=== PATIENT | male | born 1995 | race Caucasian/White ===

== ENCOUNTER 2017-08-31 04:47 | Emergency (ER) | payer OTHER ==
[2017-08-31 05:15] VITALS: RESP 16; TEMP 98.1
[2017-08-31] MEDS ORDERED: DEXAMETHASONE 10 MG/ML VIAL PO ONE (05:32)
--- NOTE | 2017-08-31 05:34 | EDPHY ---
H & P Stated Complaint: sore throat for 3 days Time Seen by Provider: 08/31/17 04:54 HPI/ROS: HPI The patient presents with sore throat for the last 4 days which has gotten progressively worse and is more painful with swallowing. He believes he feels swollen lymph node in his left neck. He has not had a fever, he has not had a cough, has not had rhinorrhea. He does not have any fatigue, abdominal pain, nausea or vomiting. He denies any sick contacts. He is concerned he may have strep throat. REVIEW OF SYSTEMS Constitutional: No fever, no chills. Eyes: No discharge. ENT: See HPI Cardiovascular: No chest pain, no palpitations. Respiratory: No cough, no shortness of breath. Gastrointestinal: No abdominal pain, no vomiting. Genitourinary: No hematuria. Musculoskeletal: No back pain. Skin: No rashes. Neurological: No headache. PMHx: Sleep disorder, otherwise healthy Soc Hx: Lives at home with his dad PHYSICAL General Appearance: Alert, no distress Eyes: Pupils equal and round no pallor or injection ENT, Mouth: Mucous membranes moist, posterior pharynx is erythematous without exudates, left-sided anterior cervical lymphadenopathy Respiratory: There are no retractions, lungs are clear to auscultation Cardiovascular: Regular rate and rhythm Neurological: A&O, moves all extremities Skin: Warm and dry, no rashes Musculoskeletal: Neck is supple non tender Extremities: symmetrical, full range of motion Psychiatric: Patient is oriented X 3, there is no agitation Source: Patient Exam Limitations: No limitations - Personal History Current Tetanus/Diphtheria Vaccine: Yes Current Tetanus Diphtheria and Acellular Pertussis (TDAP): Yes - Medical/Surgical History Hx Asthma: No Hx Chronic Respiratory Disease: No Hx Diabetes: No Hx Cardiac Disease: No Hx Renal Disease: No Hx Cirrhosis: No Hx Alcoholism: No Hx HIV/AIDS: No Hx Splenectomy or Spleen Trauma: No Other PMH: idiopathic hypersomnia - Social History Smoking Status: Never smoked Constitutional: Initial Vital Signs Temperature (C) 36.7 C 08/31/17 04:49 Heart Rate 121 H 08/31/17 04:49 Respiratory Rate 16 08/31/17 04:49 Blood Pressure 131/74 H 08/31/17 04:49 O2 Sat (%) 96 08/31/17 04:49 O2 Delivery Mode Room Air Allergies/Adverse Reactions: No Known Allergies Allergy (Verified 08/31/17 04:51) Home Medications: Medication Instructions Recorded Wellbutrin 100mg (*) 08/31/17 Medical Decision Making Differential Diagnosis: 21-year-old male presents with 4 days of sore throat. On exam he has erythema without exudates of his posterior pharynx. Differential diagnosis includes viral pharyngitis, strep pharyngitis, less likely mononucleosis. In the emergency department, rapid strep was performed and negative. Plan for dose of Decadron here, I have advised patient to continue ibuprofen and Tylenol. He will be discharged though I have instructed him to follow up with his primary care doctor in 2 days unless he is better.. - Data Points Laboratory Results: 08/31/17 08/31/17 Unknown 04:53 Group A Strep Screen NEGATIVE (NEGATIVE) Group A Strep DNA Pending Departure - Departure Disposition: Home, Routine, Self-Care Clinical Impression: Acute pharyngitis Qualifiers: Pharyngitis/tonsillitis etiology: unspecified etiology Qualified Code(s): J02.9 - Acute pharyngitis, unspecified Condition: Good Instructions: Pharyngitis (ED) Additional Instructions: I recommend you take ibuprofen 400 mg and acetaminophen 650 mg every 6 hr as needed for pain. If your still having symptoms in 2 days I would like for you to follow up with your primary care doctor. If your worse in any way, you should return to the emergency department. Referrals: Martha Atkinson MD [Primary Care Provider] - As per Instructions
[2017-08-31 05:52] VITALS: BP 128/70; PULSE 110; O2SAT 97
== END 2017-08-31 05:52 | disposition home or self-care (01) ==
DX: J02.9 Acute pharyngitis, unspecified (principal)
CPT/HCPCS: J1100

== ENCOUNTER 2017-12-27 15:32 | Inpatient (IN) | payer OTHER ==
--- NOTE | 2017-12-27 15:52 | EDPHY ---
H & P Stated Complaint: SI Source: Patient Exam Limitations: No limitations - Personal History Current Tetanus/Diphtheria Vaccine: Unsure Current Tetanus Diphtheria and Acellular Pertussis (TDAP): Unsure - Medical/Surgical History Hx Asthma: No Hx Chronic Respiratory Disease: No Hx Diabetes: No Hx Cardiac Disease: No Hx Renal Disease: No Hx Cirrhosis: No Hx Alcoholism: No Hx HIV/AIDS: No Hx Splenectomy or Spleen Trauma: No Other PMH: idiopathic hypersomnia, bipolar 2, - Social History Smoking Status: Current every day smoker Time Seen by Provider: 12/27/17 15:51 HPI/ROS: CHIEF COMPLAINT: Suicidal ideation HISTORY OF PRESENT ILLNESS: The patient presents to the ED with 5 days of suicidal ideation. The patient has attention deficit hyperactivity disorder in some self cutting. He reports a plan to hang himself for driving vehicle high rate of speed into an immobile object. The patient reports he has been compliant with his lithium and Trilelx. The patient is under the care of a therapist and psychiatrist here [place]. The patient denies any drug or alcohol use. The patient denies acute medical complaints. The patient denies any headache, ingestion, nausea, vomiting or additional symptoms. REVIEW OF SYSTEMS: A comprehensive 10 point review of systems is otherwise negative aside from elements mentioned in the history of present illness. (Tadeo Queen) - Physical Exam Exam: General Appearance: Alert, no distress Eyes: Pupils equal and round no pallor or injection ENT, Mouth: Mucous membranes moist Respiratory: There are no retractions, lungs are clear to auscultation Cardiovascular: Regular rate and rhythm Gastrointestinal: Abdomen is soft and nontender, no masses, bowel sounds normal Neurological: A&O, normal motor function, normal sensory exam, normal cranial nerves Skin: Superficial skin cuts to left arm, nonsuturable Musculoskeletal: Neck is supple nontender Extremities: symmetrical, full range of motion Psychiatric: Flat affect, cooperative, non agitated, endorses suicidal thoughts with plan, can contract for safety currently (Tadeo Queen) Constitutional: Initial Vital Signs Temperature (C) 37 C 12/27/17 15:40 Heart Rate 85 12/27/17 15:40 Respiratory Rate 16 12/27/17 15:40 Blood Pressure 126/83 H 12/27/17 15:40 O2 Sat (%) 96 12/27/17 15:40 O2 Delivery Mode Room Air Allergies/Adverse Reactions: lamotrigine [From Lamictal] Allergy (Verified 12/27/17 15:39) Home Medications: Medication Instructions Recorded Ethan Carbonate 12/27/17 Trintellix 12/27/17 Medical Decision Making ED Course/Re-evaluation: The patient has been medically cleared for psychiatric evaluation. The patient's psychiatric disposition is pending at 10:00 p.m. and will be turned over to Dr. Loving at shift change. (Tadeo Queen) Differential Diagnosis: Differential diagnosis considered includes suicidal ideation, depression, bipolar mood disorder, psychosis (Tadeo Queen) Other Provider: 22:[address] Queen pending mental health evaluation. 23:15 patient has been evaluated and accepted at [address] [place] [address] Tate, I have completed the EMTALA. (Abisai Loving) - Data Points Laboratory Results: Laboratory Results 12/27/17 16:10 12/27/17 16:10 12/27/17 12/27/17 12/27/17 16:25 16:13 16:10 WBC RBC Hgb Hct MCV MCH MCHC RDW Plt Count MPV Neut % (Auto) Lymph % (Auto) [place] % (Auto) Eos % (Auto) Baso % (Auto) Nucleat RBC Rel Count Absolute Neuts (auto) Absolute Lymphs (auto) Absolute Monos (auto) Absolute Eos (auto) Absolute Basos (auto) Absolute Nucleated RBC Immature Gran % Immature Gran # Sodium 146 mEq/L H mEq/L (135-145) Potassium 4.7 mEq/L mEq/L (3.3-5.0) Chloride 107 mEq/L mEq/L (97-110) Carbon Dioxide 29 mEq/l mEq/l (22-31) Anion Gap 10 mEq/L mEq/L (8-16) BUN 10 mg/dL mg/dL (7-23) Creatinine 0.8 mg/dL mg/dL (0.7-1.3) Estimated GFR > 60 Glucose 69 mg/dL L mg/dL (70-100) Calcium 9.9 mg/dL mg/dL (8.5-10.4) Urine Opiates Screen NEGATIVE (NEGATIVE) Urine Barbiturates NEGATIVE (NEGATIVE) Ur Phencyclidine Scrn NEGATIVE (NEGATIVE) Ur Amphetamine Screen NEGATIVE (NEGATIVE) U Benzodiazepines Scrn NEGATIVE (NEGATIVE) Ethan 0.3 mEq/L L mEq/L (0.6-1.2) Urine Cocaine Screen NEGATIVE (NEGATIVE) U Marijuana (THC) Screen NEGATIVE (NEGATIVE) Ethyl Alcohol < 10 mg/dL mg/dL (0-10) 12/27/17 16:10 WBC 7.11 10^3/uL 10^3/uL (3.80-9.50) RBC 5.24 10^6/uL 10^6/uL (4.40-6.38) Hgb 15.9 g/dL g/dL (13.7-17.5) Hct 47.2 % % (40.0-51.0) MCV 90.1 fL fL (81.5-99.8) MCH 30.3 pg pg (27.9-34.1) MCHC 33.7 g/dL g/dL (32.4-36.7) RDW 12.0 % % (11.5-15.2) Plt Count 251 10^3/uL 10^3/uL (150-400) MPV 8.9 fL fL (8.7-11.7) Neut % (Auto) 65.2 % % (39.3-74.2) Lymph % (Auto) 23.2 % % (15.0-45.0) [place] % (Auto) 7.5 % % (4.5-13.0) Eos % (Auto) 3.1 % % (0.6-7.6) Baso % (Auto) 0.7 % % (0.3-1.7) Nucleat RBC Rel Count 0.0 % % (0.0-0.2) Absolute Neuts (auto) 4.64 10^3/uL 10^3/uL (1.70-6.50) Absolute Lymphs (auto) 1.65 10^3/uL 10^3/uL (1.00-3.00) Absolute Monos (auto) 0.53 10^3/uL 10^3/uL (0.30-0.80) Absolute Eos (auto) 0.22 10^3/uL 10^3/uL (0.03-0.40) Absolute Basos (auto) 0.05 10^3/uL 10^3/uL (0.02-0.10) Absolute Nucleated RBC 0.00 10^3/uL 10^3/uL (0-0.01) Immature Gran % 0.3 % % (0.0-1.1) Immature Gran # 0.02 10^3/uL 10^3/uL (0.00-0.10) Sodium Potassium Chloride Carbon Dioxide Anion Gap BUN Creatinine Estimated GFR Glucose Calcium Urine Opiates Screen Urine Barbiturates Ur Phencyclidine Scrn Ur Amphetamine Screen U Benzodiazepines Scrn Ethan Urine Cocaine Screen U Marijuana (THC) Screen Ethyl Alcohol Departure - Departure Disposition: [facility] IP Clinical Impression: Severe major depression, Suicidal ideation Condition: Fair Referrals: Martha Atkinson MD [Primary Care Provider] - As per Instructions
[2017-12-27 16:27] LABS: PLATELET COUNT 251 10^3/uL (150-400)
[2017-12-28] MEDS ORDERED: MAGNESIUM HYDROXIDE 30 ML UDCUP PO PRN (02:57)
[2017-12-28] MEDS ORDERED: MAG HYDROX/AL HYDROX/SIMETH 30 ML UDCUP PO PRN (02:57)
[2017-12-28] MEDS ORDERED: ACETAMINOPHEN 325 MG TAB PO PRN (02:57)
[2017-12-28] MEDS: LORazepam 0.5 MG TAB PO PRN (03:35)
[2017-12-28] MEDS: NICOTINE POLACRILEX 2 MG GUM B PRN ×3 (03:51→13:40)
[2017-12-28] MEDS: LITHIUM CARBONATE ER 450 MG TAB PO SCH ×2 (13:44→20:23)
[2017-12-28] MEDS: ARIPiprazole 10 MG TAB PO SCH (13:44)
--- NOTE | 2017-12-28 16:39 | BAPA ---
[f rep st] ADMISSION PSYCHIATRIC ASSESSMENT DATE OF SERVICE: 12/28/2017 CHIEF COMPLAINT: "I came to the hospital because I was suicidal and I thought I might act on it." HISTORY OF PRESENT ILLNESS: Per ED dictation dated 12/27/2017, time 1552. The patient presented to the ED with 5 days of suicidal ideation. The patient reported he planned to hang himself or drive a vehicle at a high rate of speed into an immobile object. The patient reports he has been adherent to medication regimen of lithium and Trintellix. The patient reported he is under care of a therapist and psychiatrist in [place]. The patient denied drug and alcohol use and the patient denied acute medical complaints. The patient denied any headache, congestion, nausea, vomiting, or other physical symptoms. The patient was admitted involuntarily, is on an M1 hold due to being a danger to himself and is hospitalized for safety, crisis stabilization and medication evaluation. The patient describes circumstances that contributed to crisis that led to his current hospitalization as states that he has been experiencing hypomanic symptoms over the last several weeks and reports that he is recently coming down from this manic episode into a deep state of depression and started having suicidal thoughts and decided to seek help at the ER because he felt like he could not be safe by himself. The patient reports current mental illness that contributed to crisis that led to current hospitalization as bipolar 2 disorder. The patient denied use of alcohol or substances prior to his hospitalization. The patient describes current psychiatric symptoms as mild depression. The patient reports history of deric symptoms including a distinct periods of time where his mood is elevated, expansive and irritable. Reports increased goal-directed activity and energy present most of the day nearly every day and he describes the following symptoms during that time: Symptoms of inflated self-esteem, decreased need for sleep. Patient reports he feels rested after only getting 1-2 hours of sleep. Reports he has a pressure to keep talking, flight of ideas, distractibility. The patient reports these periods of time last about 7 days and these have occurred 3-4 times since June of 2017. The patient reports he also has experienced periods of depression and reports these periods especially after coming down from a manic episode. The patient reports he has experienced depression symptoms including depressed mood, diminished interest in all or almost all activities that he typically enjoys, decreased appetite, insomnia, or hypersomnia reports symptoms of fatigue, feelings of worthlessness and excessive guilt and reports that during these depressed states he has thoughts of wanting to harm or kill himself. The patient denies any history of abuse. The patient denies other psychiatric symptoms including symptoms of anxiety, attention deficit hyperactivity disorder, OCD, PTSD, psychosis and any other symptoms of a psychiatric disorder other than what's been described above. The patient describes current psychiatric symptoms are impacting managing his day-to-day life described as having difficulty performing day-to-day household responsibilities, especially when he is in a depressed state. Reports he is currently taking a break from work due to his mood instability. The patient reports he is socializing okay and reports he gets along well with his dad who he lives with. 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 However, he has been missing classes due to his current mood instability. The patient reports he enjoys engaging in reading and playing video games and reports he is currently not satisfied with his life. The patient reports no current suicidal ideation and reports the last time he had any suicidal ideation was prior to his admission last night. The patient reports protective factors or reasons to live as his future, his family and he just wants to live out his life. The patient reports future goals are to get a computer engineering degree and moved to a city preferably on the [facility]. The patient reports his main support is his dad. The patient denies current homicidal ideation and denies current self-injurious ideation. PAST PSYCHIATRIC HISTORY: The patient describes the following psychiatric, history past diagnosis and current diagnosis as bipolar 2 disorder. PAST PSYCHIATRIC MEDICATIONS: Lee 300 mg IR QAM and 450 mg ER QHS. The patient reports he has also been recently started on Trintellix 5 mg, however, the patient reports he feels like it is possible that Trintellix led to his mood instability and his outpatient provider has advised him to lower the Trintellix dose recently to 2.5 mg due to this concern. The patient reports he has never been in an inpatient psychiatric hospital, however, he did spend some time in a residential treatment facility in [place] recently. The patient reports he sees on Sondra Mays, nurse practitioner, for medication management on an outpatient basis and reports he sees Ajith Hernandez for therapy in [place]. Patient denies any withdrawal history from drugs or alcohol. The patient reports he has never attempted suicide and reports a history of cutting, most recently cutting a few days ago and the patient does currently have a few superficial cuts on the inside of his left forearm. ALLERGIES: Lamictal. CURRENT MEDICATIONS: Lee 300 IR p.o. q.a.m. and 450 ER p.o. at bedtime Trintellix 2.5 mg p.o. daily. PAST MEDICAL HISTORY: The patient describes the following: Neurological history: None. The patient denies any major illnesses or major hospitalizations. SOCIAL HISTORY: The patient describes the following social history: The patient reports he was born in [place], [place] and his parents were at the time of his . The patient reports his parents are now and they when he was 6 years old. The patient reports he was raised all his life in [place] by both parents. The patient reports he currently lives in [place] with his dad. The patient reports developmental milestones growing up as he met all developmental milestones. The patient reports no learning delays or difficulties. The patient describes his sexual orientation as rosales reports he has been in a relationship for about 1.5 months and states he feels safe in this relationship. The patient reports he has never been and has no children. Reports he is currently not working as he is taking a break from work due to recent and current mood instability. The patient reports the highest level of education is GED. Reports no history of duty. No advent or spiritual practice and reports no current legal issues. SUBSTANCE USE HISTORY: The patient reports he drinks alcohol about once a month and when he does drink, he has about 4 drinks. The patient reports he smokes about 4 cigarettes per day and does not consume coffee or any other drinks that contain caffeine. Reports he smokes marijuana about once a month. Denies history or current use of meth, cocaine, crack, or heroin. The patient reports history of abusing hydrocodone, Vyvanse, Valium and other benzodiazepines. The patient reports he has also used DXM in the past. FAMILY PSYCHIATRIC HISTORY: The patient describes the following family psychiatric history: The patient reports maternal side of his family has a history of bipolar disorder and his paternal side of his family has a history of depression. The patient reports no family history of suicide or suicide attempts and no family history of substance use. ADMISSION LABS: CBC within normal limits. Chemistry: Sodium elevated at 146, glucose low at 69. Liver function tests currently pending. Toxicology: Lee was at 0.3 and that is at the current dose described above. The patient reports he has not missed lithium dose at doses listed above. UDS was negative for all substances and alcohol was less than 10. MENTAL STATUS EXAM: The patient presents casually dressed and with good hygiene , and looks stated age. Patient is sitting, posture is upright, and position is relaxed. Patient appears awake, alert, and responds appropriately and reasonably during interview. Patient is engaged, relates well to interviewer, and emotional facial expression is appropriate to situation and changes appropriately with topic. Patient is cooperative, makes comfortable eye contact , and movements are voluntary, deliberate, coordinated, and smooth and even with no inappropriate movements. Patient makes laryngeal sounds effortlessly and shares conversation appropriately; pace of conversation is appropriate, and stream of talking is fluent; articulation is clear and understandable; word choice is effortless and appropriate for education level; completes sentences, occasionally pausing to think; rate and volume are appropriate for interview and setting. Patient reports mood as euthymic. Patients affect is stable with full variable range, congruent with mood, and appropriate to speech and circumstances. Patient has linear and logical thinking, with no loose associations, tangential thought, thought blocking, concrete thinking, or any other signs of formal thought disorder. Patient denies suicidal and homicidal ideation, and denies hallucinations and delusions. Patient appears to be a reliable historian with sound judgement and good insight into current condition. Patient has no apparent dysfunction in recent or remote memory noted , and no evidence of gross cognitive dysfunction noted at any point during the interview. DIAGNOSIS: Bipolar 2 disorder, depressed, with rapid cycling FORMULATION: The patient is a 22-year-old male, not , currently not employed, living in [place] with his dad who presents to the hospital involuntarily due to risk to harm himself and is currently on an M1 hold. The patient requires continued inpatient care because of current mood instability and recent suicidal ideation. The patient presents with problems of mood instability that have been steadily increasing over the past several weeks. The patient's life has been affected by these problems including recent suicidal ideation and self-harm. The exacerbation of symptoms was likely preceded by lithium level not at therapeutic dose and the patient being on an antidepressant, which has a high likelihood of triggering deric. The patient has a past psychiatric history of bipolar 2 disorder that is currently treated with the medications listed above and response to treatment has been poor. Based on the patient's history and current presentation, his diagnosis is bipolar 2 disorder, mild, depressed. The patient is at moderate to high suicide safety risk due to current mood instability, recent suicidal ideation and history of suicidal ideation and self-harm. Protective factors while hospitalized include ongoing safety checks, active involvement in treatment and support from our treatment team. The patient could benefit from inpatient hospitalization for safety, crisis stabilization, medication evaluation. Further investigation include gathering information from the patient's relatives , review of past case records and continued evaluation will be ongoing during the course of inpatient hospitalization to inform treatment and discharge planning. Immediate plans include continued inpatient hospitalization for safety , crisis stabilization and medication evaluation. The patient will continue to be monitored and evaluated to determine if adjustments in medication regimen may benefit symptoms. PLAN: 1. Psychotropic medications. After reviewing the risks and benefits, the patient agrees to lithium ER 450 mg p.o. twice daily for mood and Abilify 10 mg p.o. daily for mood and depression. 2. Labs: Including the labs that have already been completed recently this interviewer ordered liver function panel, A1c, fasting lipid panel, and lithium level to be drawn December 31, prior to a.m. dose of lithium. TSH was also ordered. 3. Milieu and group therapy. 4. Further investigation including gathering information from the patient's relatives and review of past case records. 5. Continued evaluation will be ongoing during the course of the patient's inpatient hospitalization to inform treatment and discharge planning. 6. Safety plan and followup outpatient appointments to be established prior to discharge and patient to complete a safety plan and wellness plan prior to discharge. 7. This interviewer will confer with inpatient treatment team regarding initial treatment plan. 8. Will review the following Informed Consent and Recommendations for psychotropic medications with the patient now and also throughout the stay. Estimated length of stay: 5-7 days. PSYCHOTROPIC MEDICATION TREATMENT INFORMED CONSENT and RECOMMENDATIONS: Review nature of condition, diagnosis, and prognosis. Review nature and purpose of psychotropic medication treatment. Review type of psychotropic medications being ordered. Review risk and benefits of psychotropic medication treatment. Review probable length of time will need to take medications. Review risk and benefits of not undergoing psychotropic medication treatment. Review alternative treatments to psychotropic medications. Review psychotropic medications contraindications, drug-drug interactions, side effects, and importance of reporting any side effects to a psychiatric provider or nurse during inpatient hospitalization, and upon discharge to patients psychiatric outpatient provider, primary care provider, or other health animal daycare provider. Review importance of asking a nurse, psychiatric provider, or primary care provider any questions or problems concerning the psychotropic medications. Verifty patient understands the information that has been provided, and understands, accepts, and agrees to psychotropic medications. Review patients safety plan and importance of patient to communicate to staff while hospitalized if patient is ever a danger to self/others, or unable to care for self, and upon discharge, the importance for patient to contact [facility] or [facility], or go to the nearest emergency room, if patient is ever a danger to self/others, or unable to care for self. Recommend that upon discharge patient establish medication management treatment with a psychiatric provider, establishes routine therapy appointments, and follow-up with primary care provider. Verify patient understands and agrees to these recommendations. /[id number]/MODL MTDD
--- NOTE | 2017-12-28 17:45 | BCON ---
[f rep st] BEHAVIORAL HEALTH CONSULTATION INTERNAL MEDICINE CONSULTATION. DATE OF CONSULTATION: 12/28/2017 REFERRING PHYSICIAN: Ziyad Tate MD REASON FOR REFERRAL: Medical clearance for inpatient behavioral health stay. HISTORY OF PRESENT ILLNESS: This patient came to the emergency department with 5 days of suicidal ideation. He was evaluated by the Mental Health Team and admitted for further psychiatric care. He currently is without any acute medical complaints. PAST MEDICAL HISTORY: 1. Bipolar disorder. 2. Attention deficit hyperactivity disorder. PAST SURGICAL HISTORY: He denies any surgeries. MEDICATIONS: He was taking lithium and Vortioxetine. SOCIAL HISTORY: He lives with his father. He is a tobacco smoker. He is in school studying computer science. He had been working part-time as well, but is not working currently. FAMILY HISTORY: Noncontributory. REVIEW OF SYSTEMS: He denies fevers, chills, weight change, cough, dyspnea, pain, nausea, vomiting, constipation, diarrhea, or any urinary difficulties. Otherwise, a 10-point review of systems is negative. PHYSICAL EXAM: VITAL SIGNS: Blood pressure is 120/82, heart rate this morning was 59, but he seems tachycardic at present. Respiratory rate is 14, oxygen saturation is 97% on room air, temperature 36.6 degrees centigrade. His weight is 74.8 kg for a body mass index of 20.1. GENERAL: This is a well-nourished, well-developed, thin man, appears his chronologic age. Cooperative and in no acute distress. HEENT: Extraocular movements are intact. Pupils are equal, round, and reactive to light. Mucous membranes are moist. Dentition is in good condition. He has an uncrowded airway, Mallampati class 1. NECK: Supple. HEART: There is a regular rate and rhythm with no murmurs, rubs, or gallops. He is mildly tachycardic. LUNGS: Clear to auscultation bilaterally. ABDOMEN: Benign. EXTREMITIES: There is no cyanosis, clubbing, or edema. NEUROLOGIC: He is alert and oriented x3. Cranial nerves II through XII are grossly intact. There is no focal weakness and sensation is intact to light touch. SKIN: He has several superficial lacerations on his left palmar forearm , and scattered comedones especially on his left forehead. LABORATORY STUDIES: From yesterday in the emergency department, hematology revealed a completely normal CBC. Serum chemistry showed a slightly elevated sodium at 146, a slightly low glucose at 69. Otherwise renal function and electrolytes were within normal limits. Toxicology screen in the serum was negative for ethyl alcohol. [place] was subtherapeutic at 0.3. Toxicology screen in the urine was negative for substances of abuse. ASSESSMENT/RECOMMENDATIONS: 1. Mental health issues pending further evaluation and management per Psychiatry and the Mental Health Team. 2. Tobacco dependence syndrome: Encouraged smoking cessation. 3. Superficial lacerations: There is nothing that requires suturing and would expect them to heal without any complication. 4. Acne vulgaris. No indication to treat at present. He can resume whatever treatment he may have used prior to admission after he is discharged. I see no medical contraindications to this patient's continued stay on the inpatient behavioral health unit or to any psychiatric medications or procedures. Thank you very much for involving me in the care of this patient. Please do not hesitate to contact me or the Hospitalist Service should there be need for further medical evaluation. /[id number]/MODL MTDD
[2017-12-29] MEDS: LITHIUM CARBONATE ER 450 MG TAB PO SCH ×2 (08:15→20:33)
[2017-12-29] MEDS: ARIPiprazole 10 MG TAB PO SCH (08:15)
--- NOTE | 2017-12-29 15:15 | SOAPPROG ---
SOAP Progress Note Assessment/Plan: Assessment: Bipolar II, depressed, with rapid cycling. Patient is improving. Reports no SI. Patient could benefit from continued inpatient hospitalization for crisis stabilization, safety, and medication evaluation. Plan: Review psychotropic medication treatment informed consent and recommendations. After reviewing risk and benefits, patient agrees to continue medications. No medication changes at this time as more time is needed to determine ongoing tolerability and efficacy. Plan is to continue to observe patient for response and side effects from medications, and ongoing monitoring and evaluation. Next steps are for patient to meet with gericare aide to plan a safe discharge plan and establish outpatient services for ongoing treatment. Consider discharge on Wednesday if patient is in stable condition, safe, and has a safe discharge plan. PSYCHOTROPIC MEDICATION TREATMENT INFORMED CONSENT and RECOMMENDATIONS: Review nature of condition, diagnosis, and prognosis. Review nature and purpose of psychotropic medication treatment. Review type of psychotropic medications being ordered. Review risk and benefits of psychotropic medication treatment. Review probable length of time patient will need to take medications. Review risk and benefits of not undergoing psychotropic medication treatment. Review alternative treatments to psychotropic medications. Review psychotropic medications contraindications, drug-drug interactions, side effects, and importance of reporting any side effects to a psychiatric provider or nurse during inpatient hospitalization, and upon discharge to patients psychiatric outpatient provider, primary care provider, or other health career orientation teacher. Review importance of asking a nurse, psychiatric provider, or primary care provider any questions or problems concerning the psychotropic medications. Verify patient understands the information that has been provided, and understands, accepts, and agrees to psychotropic medications. Review patients safety plan and importance of patient to report to staff while hospitalized if patient is ever a danger to self/others, or unable to care for self, and upon discharge, the importance for patient to contact [facility] or [facility], or go to the nearest emergency room, if patient is ever a danger to self/others, or unable to care for self. Recommend that upon discharge patient establish medication management treatment with a psychiatric provider, establishes routine therapy appointments, and follow-up with primary care provider. Verify patient understands and agrees to these recommendations. 12/29/17 15:14 Subjective: Following up with patient for evaluation of mood and safety. Patient reports, Have been feeling tired today, laid down for a couple of naps. Patient reports he has been taking his medications as prescribed, is tolerating medications with no report of SEs, is attending groups, eating all meals, and reports getting about 8 hours of sleep last night; however, patient reports waking several times through the night. Patient reports he typically does not have any trouble getting good sleep. Patient reports no SI/HI, and expresses no psychiatric symptoms. Patient agrees that it is important for him to abstain from using MJ and ETOH, and the importance for him to eat a healthy diet, exercise, and the importance of good sleep hygiene. Patient reports he did have some self-injurious ideation yesterday, and states he had no plan or intent to act on these thoughts. He reports no current self-injurious ideation. Objective: Vital Signs Temp Pulse Resp BP Pulse Ox 36.6 C 90 12 120/82 H 96 12/29/17 06:00 12/29/17 06:00 12/29/17 06:00 12/28/17 03:32 12/29/17 06:00 Consulted with treatment team staff for update on patients progress in treatment. Nursing reports patient is engaged in treatment, taking medications as prescribed, tolerating medications with no report of side effects, expresses no psychiatric symptoms, reports no psychiatric symptoms, is sleeping well, 8 hours, eating all meals, active in groups, denies SI/HI. Psychiatric signs noted: mild depression. [facility] phone call: This interview spoke to [facility] today by phone (RYANN in chart). FOC reports Moreno has done well in the past on [place], however, seemed to deteriorate due to lifestyle choices including poor sleep hygiene (staying out late with friends), unhealthy diet (sugar binging), drinking (ETOH), and using cannabis. FOC reports he noticed a change in patients mood when patient began engaging in these behaviors. [facility] agrees with current plan of [place] ER 400 mg po BID for mood and Abilify 10 mg po QD for mood and depression. No psychiatric complaints are expressed. Patient is currently improving, tolerating medications with no reports of side effects, and with good response for symptoms. The patient presents casually dressed and with good hygiene, and looks stated age. Patient is sitting, posture is upright, and position is relaxed. Patient appears awake, alert, and responds appropriately and reasonably during interview. Patient is engaged, relates well to interviewer, and emotional facial expression is appropriate to situation and changes appropriately with topic. Patient is cooperative, makes comfortable eye contact, and movements are voluntary, deliberate, coordinated, and smooth and even with no inappropriate movements. Patient makes laryngeal sounds effortlessly and shares conversation appropriately; pace of conversation is appropriate, and stream of talking is fluent; articulation is clear and understandable; word choice is effortless and appropriate for education level; completes sentences, occasionally pausing to think; rate and volume are appropriate for interview and setting. Patient reports mood as euthymic. Patients affect is stable with full variable range, congruent with mood, and appropriate to speech and circumstances. Patient has linear and logical thinking, with no loose associations, tangential thought, thought blocking, concrete thinking, or any other signs of formal thought disorder. Patient denies suicidal and homicidal ideation, and denies hallucinations and delusions. Patient appears to be a reliable historian with sound judgement and good insight into current condition. Patient has no apparent dysfunction in recent or remote memory noted , and no evidence of gross cognitive dysfunction noted at any point during the interview. - Time Spent With Patient Time Spent With Patient: 30 minutes, met with patient individually and spoke to patient's father on the phone (RYANN in chart). - Pending Discharge Pending Discharge Within 24 Hours: No Pending Discharge Within 48 Hours: Yes Pending Discharge Date: 12/31/17 Pending Discharge Time: 11:00 ICD10 Worksheet Patient Problems: Problems Problem Status Onset Depressed bipolar II disorder with rapid cycling Acute Suicidal ideation Acute
[2017-12-30] MEDS: ARIPiprazole 10 MG TAB PO SCH (08:06)
[2017-12-30] MEDS: LITHIUM CARBONATE ER 450 MG TAB PO SCH ×2 (08:06→18:23)
--- NOTE | 2017-12-30 12:09 | SOAPPROG ---
SOAP Progress Note Assessment/Plan: Assessment: Bipolar II, depressed, with rapid cycling. Patient is improving. Reports no SI , no self-injurious ideation. Patient could benefit from continued inpatient hospitalization for crisis stabilization, safety, and medication evaluation. Consider discharge tomorrow if patient is stable, safe, and has a safe discharge plan. Plan: Review psychotropic medication treatment informed consent and recommendations. After reviewing risk and benefits, patient agrees to continue medications. Consider changing Abilify dosing to HS if patient continues to show sedation after administration of this medication. No medication changes at this time as more time is needed to determine ongoing tolerability and efficacy. Plan is to continue to observe patient for response and side effects from medications, and ongoing monitoring and evaluation. Next steps are for patient to meet with primary care provider to plan a safe discharge plan and establish outpatient services for ongoing treatment. Consider discharge on Wednesday if patient is in stable condition, safe, and has a safe discharge plan. PSYCHOTROPIC MEDICATION TREATMENT INFORMED CONSENT and RECOMMENDATIONS: Review nature of condition, diagnosis, and prognosis. Review nature and purpose of psychotropic medication treatment. Review type of psychotropic medications being ordered. Review risk and benefits of psychotropic medication treatment. Review probable length of time patient will need to take medications. Review risk and benefits of not undergoing psychotropic medication treatment. Review alternative treatments to psychotropic medications. Review psychotropic medications contraindications, drug-drug interactions, side effects, and importance of reporting any side effects to a psychiatric provider or nurse during inpatient hospitalization, and upon discharge to patients psychiatric outpatient provider, primary care provider, or other health home care liaison. Review importance of asking a nurse, psychiatric provider, or primary care provider any questions or problems concerning the psychotropic medications. Verify patient understands the information that has been provided, and understands, accepts, and agrees to psychotropic medications. Review patients safety plan and importance of patient to report to staff while hospitalized if patient is ever a danger to self/others, or unable to care for self, and upon discharge, the importance for patient to contact [facility] or [facility], or go to the nearest emergency room, if patient is ever a danger to self/others, or unable to care for self. Recommend that upon discharge patient establish medication management treatment with a psychiatric provider, establishes routine therapy appointments, and follow-up with primary care provider. Verify patient understands and agrees to these recommendations. 12/30/17 12:12 Subjective: Following up with patient for evaluation of mood and safety. Patient reports, "I feel like I have improved a lot since being here, and ready to discharge...how about tomorrow morning after lithium level?" Patient reports some sedation following Abilify 10 mg po QD and states he has taken a few naps throughout the day. Patient reports he has been taking his medications as prescribed, is tolerating medications with no report of SEs, is attending groups , eating all meals, and reports getting about 10 hours of sleep last night. Patient reports no SI/HI, no self-injurious ideation, and expresses no psychiatric symptoms. Patient agrees to family meeting today with his father, care mgr, and this interviewer. Objective: Vital Signs Temp Pulse Resp BP Pulse Ox 36.6 C 100 16 107/55 L 96 12/30/17 06:00 12/30/17 06:00 12/30/17 06:00 12/30/17 06:00 12/30/17 06:00 Consulted with treatment team staff for update on patients progress in treatment. Nursing reports patient is engaged in treatment, taking medications as prescribed, tolerating medications with no report of side effects, expresses no psychiatric symptoms, is sleeping well, 9 hours, eating all meals, active in groups, denies SI/HI and denies self-injurious ideation. Psychiatric signs noted: none. No psychiatric complaints are expressed, patient denies SI and self-injurious ideation. Patient is currently improving, tolerating medications with no reports of side effects, and with good response for symptoms. The patient presents casually dressed and with good hygiene, and looks stated age. Patient is sitting, posture is upright, and position is relaxed. Patient appears awake, alert, and responds appropriately and reasonably during interview. Patient is engaged, relates well to interviewer, and emotional facial expression is appropriate to situation and changes appropriately with topic. Patient is cooperative, makes comfortable eye contact, and movements are voluntary, deliberate, coordinated, and smooth and even with no inappropriate movements. Patient makes laryngeal sounds effortlessly and shares conversation appropriately; pace of conversation is appropriate, and stream of talking is fluent; articulation is clear and understandable; word choice is effortless and appropriate for education level; completes sentences, occasionally pausing to think; rate and volume are appropriate for interview and setting. Patient reports mood as euthymic. Patients affect is stable with full variable range, congruent with mood, and appropriate to speech and circumstances. Patient has linear and logical thinking, with no loose associations, tangential thought, thought blocking, concrete thinking, or any other signs of formal thought disorder. Patient denies suicidal and homicidal ideation, and denies hallucinations and delusions. Patient appears to be a reliable historian with sound judgement and good insight into current condition. Patient has no apparent dysfunction in recent or remote memory noted , and no evidence of gross cognitive dysfunction noted at any point during the interview. - Time Spent With Patient Time Spent With Patient: 20 minutes, met with patient individually. - Pending Discharge Pending Discharge Within 24 Hours: Yes Pending Discharge Within 48 Hours: No Pending Discharge Date: 12/31/17 Pending Discharge Time: 11:00 ICD10 Worksheet Patient Problems: Problems Problem Status Onset Depressed bipolar II disorder with rapid cycling Acute Suicidal ideation Acute
[2017-12-30] MEDS: LORazepam 0.5 MG TAB PO PRN (17:17)
[2017-12-31 06:03] VITALS: BP 116/67
[2017-12-31] MEDS: LITHIUM CARBONATE ER 450 MG TAB PO SCH (07:56)
--- NOTE | 2017-12-31 16:17 | BDS ---
[f rep st] BEHAVIORAL HEALTH DISCHARGE SUMMARY REASON FOR ADMISSION: The patient presented to the ED with 5 days of suicidal ideation. The patient had a plan to hang himself or drive a vehicle at a high rate of speed into an immobile object. The patient was hospitalized for crisis stabilization, safety, and medication evaluation. For further information regarding reason for admission, please refer to the ED report and TLC evaluation for this admission. ADMISSION DIAGNOSES: Bipolar 2 disorder, depressed, with rapid cycling and suicidal ideation. ADMISSION PHYSICAL EXAM: The patient was seen by Dr. Davison on 12/28/2017. Dr. Davison reported there were no medical contraindications to this patient's continued stay on the inpatient behavioral health unit or to psychiatric medications or procedures. The patient was medically cleared for continued inpatient psychiatric hospitalization. For further information regarding the admission physical exam, please refer to Dr. Davison's medical consult note. ADMISSION LABS: CBC normal. Serum chemistry slightly elevated sodium at 146, slightly low glucose at 69. Renal function, electrolytes within normal limits. Toxicology screen, serum was negative for alcohol. [place] was subtherapeutic at 0.3. Toxicology screen in the urine was negative for substances of abuse. The patient also had A1c ordered and that was at 5.3 on . Also, a lipid panel: Cholesterol low at 123, LDL low at 48, VLDL cholesterol 26, which is elevated, non-HDL cholesterol 74, low LDL/HDL ratio low at 0.98. All other fasting lipid panel results within normal limits. HOSPITAL COURSE: The most prominent symptoms and behaviors while the patient was here were the following: Some mood instability and anxiety. Target symptoms during the patient's admission were suicidal ideation, mood instability , and anxiety. PLAN OF TREATMENT DURING STAY: Modalities utilized were as follows: Milieu and group therapy. Wolf[place] ER 450 p.o. b.i.d. was started to target mood instability symptoms. Medication was tolerated with no report of side effects and with good response. [place] level upon discharge was 0.5 and the patient's mood was stable. Abilify 10 mg p.o. daily was started to target mood symptoms. Was tolerated with no report of side effects and with good response. The patient reported some depression and the Abilify was started to target depression symptoms and for mood instability. The patient has improved considerably with no signs of psychiatric symptoms and no psychiatric symptoms expressed at discharge. The patient reports he has improved since his admission. States to be in stable condition feels safe to discharge and contract for safety. The patient's response to treatment was good. There were no adverse or unexpected results of treatment. The patient was safe throughout stay, active in treatment, engaged in groups, and was appropriate with staff. The treatment team consensus is the patient is in stable condition and is safe to discharge today. The patient's father met with this interviewer inpatient yesterday to review the patient's discharge plan to get father's impression and opinion regarding the patient's presentation and current mood and to assess father's impression or opinion of the patient's ability to be able to be safely discharged today. Father reported that he felt like patient had improved considerably. Agreed with patient discharge today and reported that the patient could be safe to discharge today. The patient lives with the father who appears to be very supportive. CONDITION AT DISCHARGE: The patient is in stable condition and is no longer a danger to self or others and is not gravely disabled due to mental illness. The patient is no longer in need of inpatient level of care and can safely and effectively be treated within the community. The patient's level of risk at time of discharge is low based on the risk assessment below following this discharge summary. MENTAL STATUS EXAM: The patient is casually dressed and with good hygiene, and looks stated age. Patient is sitting, posture is upright , and position is relaxed. Patient appears awake, alert, and responds appropriately and reasonably during interview. Patient is engaged, relates well to interviewer, and emotional facial expression is appropriate to situation and changes appropriately with topic. Patient is cooperative, makes comfortable eye contact, and movements are voluntary, deliberate, coordinated, and smooth and even with no inappropriate movements. Patient makes laryngeal sounds effortlessly and shares conversation appropriately; pace of conversation is appropriate, and stream of talking is fluent; articulation is clear and understandable; word choice is effortless and appropriate for education level; completes sentences, occasionally pausing to think; rate and volume are appropriate for interview and setting. Patient reports mood as euthymic. Patients affect is stable with full variable range, congruent with mood, and appropriate to speech and circumstances. Patient has linear and logical thinking, with no loose associations, tangential thought, thought blocking, concrete thinking, or any other signs of formal thought disorder. Patient denies suicidal and homicidal ideation, and denies hallucinations and delusions. Patient appears to be a reliable historian with sound judgement and good insight into current condition. Patient has no apparent dysfunction in recent or remote memory noted, and no evidence of gross cognitive dysfunction noted at any point during the interview. DISCHARGE DIAGNOSES: Bipolar 2 disorder, depressed, with rapid cycling. DISCHARGE MEDICATIONS: Prescription for Abilify 10 mg p.o. daily #30 with no refills. The patient discharged with prescription of lithium ER 450 mg p.o. twice daily #30 with no refills. Abilify is prescribed to treat the patient's mood instability symptoms and depression. The lithium is prescribed to treat mood symptoms. The patient requested prescriptions at the time of discharge and the prescriptions were provided by this interviewer. DISPOSITION: The patient was discharged today independently and voluntarily and the patient was picked up by his mother at discharge. The patient plans to spend the day with his mother and then he will ultimately return home to live with his father. FOLLOW-UP: hospice spiritual care coordinator reports the appropriate outpatient followup services have been established and outpatient appointments have been scheduled. The patient has an appointment today with his outpatient psychiatric provider , Dr. Mays, at 2:15 this afternoon. The patient also has an appointment scheduled with his outpatient therapist next Wednesday at 6 p.m. The patient received written instructions with times and dates of outpatient followup appointments. RECOMMENDATIONS: The following recommendations were provided to the patient at time of discharge: Continue psychotropic medications as prescribed and attend outpatient appointments as scheduled. Report any side effects to a psychiatric outpatient provider, a primary care provider, or other healthcare professional. Address any questions or problems concerning your psychotropic medications with the psychiatric outpatient provider, primary care provider, or other healthcare professional. Contact [facility] or [facility] or go to the nearest emergency room if you are ever a danger to yourself, others, or unable to care for yourself. As soon as possible, establish routine medication management treatment with your outpatient psychiatric provider. Establish routine therapy appointments and follow up with the primary care providers. LEGAL COURSE: The patient was admitted on M1, 72-hour involuntary hold. The patient did agree to sign in for voluntary hospitalization and was discharged today independently and voluntarily. ATTITUDE AT TIME OF DISCHARGE: The patient's attitude was positive at the time of discharge. The patient reports looking forward to discharging today. The patient reports he feels safe to discharge, is no longer a danger to himself or others, is in stable condition, and contracts for safety. The patient states he will continue medications as prescribed and patient plans to establish medication management treatment with his outpatient provider after discharge. The patient reports he understands the information that has been provided to him and he understands, accepts, and agrees to psychotropic medications. The patient reports internal protective factors as coping skills he has learned while hospitalized here and he plans to continue to practice these coping skills after discharge. The patient reports external protective factors as several future prospects, looking forward to a career and friends and family. The patient describes looking forward to seeing his mother and father after discharge today. The patient describes future plans as getting a [employer] science degree and patient states he has a trip planned to [place] this summer with friends. He very much looks forward to taking this trip. The patient reports his family and friends look forward to him discharging and the patient reports his family, especially his mother and father, are very supportive in his ongoing treatment. This interviewer met with the patient's father yesterday along with patient and patient's father agrees that patient is safe to discharge today. There were no pending labs or studies at the time of discharge NO ADVANCED DIRECTIVES ON FILE. PATIENT FULL CODE DURING HOSPITALIZATION. The following psychotropic medication treatment informed consent and recommendations were provided to the patient at time of discharge. Patient reports she/he understands, accepts, and agrees to the information that has been provided. PSYCHOTROPIC MEDICATION TREATMENT INFORMED CONSENT and RECOMMENDATIONS: Review nature of condition, diagnosis, and prognosis. Review nature and purpose of psychotropic medication treatment. Review type of psychotropic medications being prescribed. Review risk and benefits of psychotropic medication treatment. Review probable length of time will need to take medications. Review risk and benefits of not undergoing psychotropic medication treatment. Review alternative treatments to psychotropic medications. Review psychotropic medications contraindications, side effects, and importance of reporting any side effects to a psychiatric provider, primary care provider, or other health healthcare consulting manager. Review importance of her asking a psychiatric provider or primary care provider any questions or problems concerning the psychotropic medications. Review importance of reporting to a psychiatric provider, primary care provider, or other health healthcare consulting manager if she plans to or becomes . Review safety plan and the importance to contact [facility] or [facility] , or go to the nearest emergency room, if ever a danger to yourself/others, or unable to care for yourself. Recommend upon discharge to establish routine medication management treatment with a psychiatric provider, establish routine therapy appointments, and follow-up with a primary care provider. Verify patient understands, accepts, and agrees to the information that has been provided. SUICIDE ASSESSMENT FIVE-STEP EVALUATION AND TRIAGE (1) RISK FACTORS: (a) Suicidal behavior: no past attempts (b) Current/past psychiatric disorders: bipolar II disorder, depressed, rapid cycling (c) Hines symptoms: none (d) Family history: none (e) Precipitants/Stressors/Interpersonal: none (f) Change in treatment: discharge from psychiatric hospital (g) Access to firearms: none (2) PROTECTIVE FACTORS: (a) Internal: coping skills (b) External: future, family, and friends (3) SUICIDAL INQUIRY: (a) Ideation: none (b) Plan: none (c) Behaviors: none (d) Intent: none (4) RISK LEVEL: Low: modifiable risk factors, strong protective factors, thoughts of , no plan, intent, or behavior. Intervention: treatment plan to reduce symptoms: medications and therapy, provided emergency/crisis numbers, follow-up plan for outpatient services. /[id number]/MODL MTDD
[2017-12-31] MEDS ORDERED: ARIPiprazole 10 MG TAB PO SCH (21:00)
== END 2017-12-31 10:07 | disposition home or self-care (01) | DRG 885 ==
LOC: BBEH 12-28 02:40
PROVIDERS: ADMIT Psychiatry & Neurology Psychiatry; ATTEND Psychiatry & Neurology Psychiatry
DX: F31.9 Bipolar disorder, unspecified (principal); F17.210 Nicotine dependence, cigarettes, uncomplicated; L70.0 Acne vulgaris
CPT/HCPCS: 80305; G0480

== ENCOUNTER 2018-05-12 18:21 | Emergency (ER) | payer OTHER ==
--- NOTE | 2018-05-12 19:07 | EDPHY ---
H & P Stated Complaint: SI since yest. Started Latuda x 4D, told to DC. Denies attempt. Source: Patient, Family Exam Limitations: No limitations - Personal History Current Tetanus/Diphtheria Vaccine: Yes - Medical/Surgical History Hx Asthma: No Hx Chronic Respiratory Disease: No Hx Diabetes: No Hx Cardiac Disease: No Hx Renal Disease: No Hx Cirrhosis: No Hx Alcoholism: No Hx HIV/AIDS: No Hx Splenectomy or Spleen Trauma: No Other PMH: idiopathic hypersomnia, bipolar 2, - Social History Smoking Status: Current every day smoker Time Seen by Provider: 05/12/18 19:06 HPI/ROS: HPI: This is a 22-year-old male who presents with Chief Complaint: SI since yesterday. Started Latuda x 4D, told to DC. Denies attempt. Location: psych Quality: Suicidal ideation Duration: Since yesterday Signs and Symptoms: no auditory hallucinations, no visual hallucinations, + suicidal ideation with a plan, no homicidal ideation, no paranoia Timing: Acute on chronic Severity: Moderate to severe Context: Patient presents voluntarily, with complaints of severe deric and worsening depression with thoughts of killing himself that include driving his car off of a araceli. He is getting minimal sleep over the last few days. He has been off of his Latuda and Vyvanse x4 days per psychiatrist recommendation as could worsen deric. Patient had recent hospitalization at [address] [place] [address] for similar circumstances pain. Patient reports that he does not feel safe to be alone. Only has 2-3 drinks on the weekends and denies any drug use. Modifying Factors: None Comment: ROS: A comprehensive 10 system review of systems is otherwise negative aside from elements mentioned in the history of present illness. MEDICAL/SURGICAL/SOCIAL HISTORY: Medical history: idiopathic hypersomnia, bipolar 2 Surgical history: Denies Social history: Tobacco user. Family history noncontributory. CONSTITUTIONAL: Polite and cooperative, tidy, young adult white male, awake and alert, no obvious distress HEENT: Atraumatic and normocephalic, PERRL, EOMI. Nares patent; no rhinorrhea; no nasal mucosal edema. Tympanic membranes clear. Oropharynx clear, no exudate and moist pink mucosa. Airway patent. No lymphadenopathy. No meningismus. Cardiovascular: Normal S1/S2, tachycardia, regular rhythm, without murmur rub or gallop. PULMONARY/CHEST: Symmetrical and nontender. Clear to auscultation bilaterally. Good air movement. No accessory muscle usage. ABDOMEN: Soft, nondistended, nontender, no rebound, no guarding, no peritoneal signs, no masses or organomegaly. No CVAT. EXTREMITIES: 2/2 pulses, strength 5/5, no deformities, no clubbing, no cyanosis or edema. NEUROLOGICAL: no focal neuro deficits. GCS 15. SKIN: Warm and dry, no erythema. no rash. Good capillary refill. PSYCH: Good eye contact, + flight of ideas, organized thought process, fair insight and judgment, no auditory hallucinations, no visual hallucinations, + suicidal ideation with a plan, no homicidal ideation, no paranoia (Minerva,Terra) Constitutional: Initial Vital Signs Temperature (C) 37.1 C 05/12/18 18:28 Heart Rate 101 H 05/12/18 18:28 Respiratory Rate 16 05/12/18 18:28 Blood Pressure 118/85 H 05/12/18 18:28 O2 Sat (%) 98 05/12/18 18:28 O2 Delivery Mode Room Air Allergies/Adverse Reactions: No Known Allergies Allergy (Unverified 05/12/18 18:26) Home Medications: Medication Instructions Recorded ARIPiprazole [Abilify 10 mg (*)] 10 mg PO HS 30 Days #30 tab 12/31/17 [place] Carbonate ER [Eskalith Cr 450 mg PO BID 30 Days #60 tab 12/31/17 450 mg (*)] LaMICtal 05/12/18 Medical Decision Making ED Course/Re-evaluation: 0700AM: Signed over to Dr. Cantu. (Johnny Arroyo) Patient's care was turned over to me by Dr. Arroyo at 7:00 a.m.. I saw the patient at 8:15 a.m.. He stable. We discussed treatment plan. He is awaiting mental health evaluation. He requests his day medication and knows the names and doses. He is given his morning psychiatric medication. (Huan Cantu) Vital signs reviewed and show mild tachycardia upon arrival. Placed on M1 hold at 7:11 p.m. Due to being eminent danger to himself and gravely disabled. Labs and urine drug screen ordered. Patient given Zyprexa 5 mg upon arrival. 1809: Labs reviewed and grossly unremarkable. Urine drug screen negative. Medically clear for mental health evaluation. 2200: Nicoderm patch ordered per request 0100: End of Shift. Signed over to Dr. Arroyo pending mental health evaluation and final disposition. This patient was seen under the supervision of my secondary supervising physician. I evaluated care for this patient independently. Discussed this patient with Dr. Dorantes. (Teresita Palma) Differential Diagnosis: Differential diagnosis includes but is not limited to deric, psychosis, intoxicated use, bipolar disorder, suicidal ideation. (Teresita Palma) Care Turn Over: Care to Dr. Yip at 3 PM (Huan Cantu) - Data Points Laboratory Results: Laboratory Results 05/12/18 19:30 05/12/18 19:30 Medications Given: Discontinued Medications Lamotrigine (Lamictal) 150 mg PO EDNOW ONE Stop: 05/13/18 08:18 Last Admin: 05/13/18 08:38 Dose: 150 mg [place] Carbonate (Eskalith Cr) 600 mg PO BID ERICA Stop: 11/09/18 08:59 Last Admin: 05/13/18 08:38 Dose: 600 mg Nicotine Polacrilex (Nicorette) 2 mg B PRN PRN PRN Reason: Nicotine Withdrawal Stop: 11/08/18 23:40 Last Admin: 05/13/18 14:08 Dose: 2 mg Olanzapine (Zyprexa Zydis) 5 mg PO EDNOW ONE Stop: 05/12/18 19:11 Last Admin: 05/13/18 00:16 Dose: Not Given Departure - Departure Disposition: Other Psych, Not [place] Clinical Impression: Bipolar affective, manic, severe, Suicidal ideations Referrals: Martha Atkinson MD [Primary Care Provider] - As per Instructions
[2018-05-12] MEDS ORDERED: OLANZapine DISINTEGR 5 MG TAB PO ONE (19:10)
[2018-05-12 19:43] LABS: PLATELET COUNT 295 10^3/uL (150-400)
[2018-05-12] MEDS: NICOTINE POLACRILEX 2 MG GUM B PRN (23:51)
[2018-05-13] MEDS ORDERED: lamoTRIgine 100 MG TAB PO ONE (08:17)
[2018-05-13] MEDS ORDERED: LITHIUM CARBONATE ER 450 MG TAB PO SCH (09:00)
[2018-05-13] MEDS: NICOTINE POLACRILEX 2 MG GUM B PRN (14:08)
--- NOTE | 2018-05-13 17:03 | ASMTTLCEVL ---
TLC Evaluation - Basic Information Evaluation Start Date and 05/13/2018 02:30 PM Time Hospital Status Answers: M1 Hold 72-hr M1 Hold Start Date 05/12/2018 07:11 PM and Time Patient statement Notes: The last few days Gema been feeling suicidal. I had a friend come over and spend time with me or I was with my father. This is different because I feel I have the energy to do it this time whereas before I didnt have the energy to kill myself. This scares me. I dont feel safe to be alone. Narrative Notes: Pt is a 22 year old, single, male who self presented to the [facility] ED due to increased SI with an inability to keep himself safe. Pt expressed feeling suicidal over the past 3 days and no longer feels he can keep himself safe if left alone. Per M1 hold initiated by [facility] ED Physician: Pt is severely manic with a history of bipolar disorder with active thoughts to end his life. He wants to drive his car off a araceli. Per ED report pt presents voluntarily with complaints of severe deric and worsening depression with thoughts of killing himself that include driving his car off a araceli. He is getting minimal sleep over the last few days. He has been off his Latuda and Vyvanse for 4 days per recommendation of his Psychiatrist as this could worsen his deric. Pt had recent hospitalization at [facility] for similar circumstances. Pt reports that he does not feel safe to be alone. Diagnosis History Notes: Pt was diagnosed with bipolar disorder in Aug. Prior suicide attempts Notes: Pt made a suicide attempt about 4-5 years ago when he tried to hang himself. Prior hospitalizations Notes: Pts 1st inpt stay was in Aug in [place] at a residential treatment center for a 30 day program. Pt [facility] from 12/27/17-12/31/17 due to rapid cycling bipolar disorder with SI. Treatment Responses Notes: Pt has been prescribed a variety of psychotropic medications to treat his bipolar illness. History of violence Notes: Pt denies any hx of abuse either towards others or as a victim. He denied any hx of childhood physical, emotional or sexual abuse. Therapist: Bravo Villafana [facility] [place] Psychiatrist: Dr Susi Mays Medications (name, dosage, route, freq uency) Notes: Home medications include: Lamictal 150 mg, Lithuim Carbonate 600 mg. Vivance 20mg, recently discontinued and Latuda which was just started earlier this week. Allergies/Reaction Notes: No known allergies. Sleep Notes: Pt reported his sleep has been sporadic. Pt has a hx of a sleep disorder. Appetite Notes: Pt described his appetite as normal. Medical/Surgical history Notes: Pt has a hx of a sleep disorder during his childhood and early adolescence which he apparently grew out of. Substance use history (frequency, intensity, his tory, duration) Notes: Pt reports he drinks alcohol about 1 time a month and when he does drink he has about 4 drinks. Pt reports he smokes cigarettes daily. Pt also reported he uses marijuana about 1 time a month. Pt denied hx or current use of meth, cocaine, crack or heroin. The pt did report in past a hx of abusing hydrocodone, Vyvanse, Valium and other Benzodiazepines. The pt had also reported in the past he had used DXM. Family composition Notes: Pt has a twin brother. His parents when he was 6 years old. Pt describes his father as his main support person. Need for family Answers: Yes participation in patient's care Family psychiatric/substance abuse history Notes: Pt reported the maternal side of the family has a hx of bipolar disorder and his paternal side of family there is depression. Pt reported no family hx of suicide attempts and no family hx of substance abuse problems. Developmental history Notes: Pt denied any hx of developmental delays and any past hx of childhood dx of ADD or ADHD. Pt denied any past hx of abuse. Pt was born in [place]. His parents were when he was born. Pts parents were when pt was 6 years old. Pt reported no learning delays or difficulties. Abuse concerns Answers: None Marital status/children Notes: Pt is single, never and has no children. Living situation Notes: Pt lives with his father. Sexual history/orientation Notes: Pt identifies as rosales. Peer support/family strengths Notes: Pt described his socialization as OK and stated he is able to get along with his father who he lives with. Pt describes his father as his main support person. Education level/history Notes: Pt completed his GED and is taking classes at [employer]. Work history Notes: Pt had reported he is taking a break from working due to his mental illness. Notes: No hx. Legal Notes: Pt denied any history of legal problems. Congregational/Spiritual Notes: Pt denied any scientology or spiritual beliefs that would impact his treatment. Leisure Notes: Pt enjoys reading and playing video games. Collateral Notes: Collateral inform was obtained from pt.'s previous [facility] records. Patient's strengths Answers: Good Friend to Others (Please select at least TWO strengths): Honest Intelligent Motivated for Treatment Responsible/Dependable Supportive Family Willingness TLC Evaluation - Mental Status Exam Appearance: Answers: Appropriate Clean Well Groomed Eye Contact: Answers: Good/Direct Mood: Answers: Depressed Sad Affect: Answers: Appropriate Calm Sad Behavior: Answers: Appropriate Cooperative Speech: Answers: Logical Clear Coherent Thought Process: Answers: Organized Oriented Alert Intact Insight: Answers: Good Judgement: Answers: Fair Manic Signs/Symptoms Answers: Distractibility Impulsivity Mood Swings Racing Thoughts Depression Answers: Diminished Interest Signs/Symptoms: Diminished Pleasure Hopelessness Sad Mood Withdrawn Worthlessness Anxiety Signs/Symptoms Answers: Generalized Anxiety Hallucinations: Answers: None Current Stage of Change Answers: Action Pt reported to have Answers: No suicidal/self-injuring ideation/behavior? Pt reported to be making Answers: Yes suicidal/self-injuring threats? Pt reported to have Answers: No aggression/assault ideation/behavior? Pt reported to be making Answers: No aggression/assault threats? Pt exhibits inability to Answers: No care for self/grave disability? Ideation/behavior is Answers: No chronic? Patient has a specific Answers: Yes plan? Pt has access to means to Answers: Yes execute the plan? Ideation involves Answers: Yes serious/lethal intent? Ideation has Answers: No delusional/hallucinatory content? History of Answers: Yes suicidal/self-injuring ideation, behavior, or threats? History of Answers: No aggressive/assaultive ideation, behavior, or threats? History of serious Answers: No physical harm to self/others while in treatment setting? [facility] Evaluation - Suicide/Homicide Risk Suicide Risk Factors: Answers: Anxiety/Panic, Severe Bipolar Disorder Calm After Agitated Depression Global Insomnia Impulsivity Major Depression Organized Lethal Plan Prior Suicide Attempt(s) Rapid Mood Shifts Single None Current Suicidal Answers: Yes Ideation? Current Suicide Ideation Past few days Frequency: Current Suicidal Ideation Answers: Yes in the Past 48 Hours? Current Suicidal Ideation Answers: No in the Past Month? Current Suicidal Answers: Yes Ideation, Worst Ever? Suicide Internal Answers: Absence of Psychosis Protective Factors: Suicide External Answers: Responsibility to Pets Protective Factors: Ranking of patient's Answers: Severe suicidal risk: Ranking of patient's Answers: Low homicidal risk: TLC Evaluation - Wrap-up AXIS I Diagnosis (include DSM-V and ICD-10 codes), must also be entered in [employer], which is the source of truth. Notes: Bipolar I Disorder, current or most recent episode depressed, severe 296.53 (F31.4) Evaluation End Date and 05/13/2018 04:55 PM Time (HH:MM): Date Signed: 05/13/2018 05:02 PM Electronically Signed By:Sneha Giang
--- NOTE | 2018-05-13 17:27 | ASMTTCLDSP ---
TLC Discharge Disposition Disposition: Answers: Transfer Disposition Notes: Notes: In consultation with [facility] , Dr Bri Yip it was concurred that pt appears to meet 27-65 criteria requiring psychiatric hospitalization as pt appears to be at risk of harm to self/ due to a mental illness condition. Type of Hold: Answers: M1/72-hour Hold Hold initiated by: Answers: ED Physician For Transfers, Accepting [facility] Facility: For Transfers, Accepting Dr Darlene King Psychiatrist: For Transfers, Reason No beds on [facility] Patient is Being Transferred: Date Signed: 05/13/2018 05:26 PM Electronically Signed By:Sneha Giang
--- NOTE | 2018-05-13 17:29 | ASMTLCPROG ---
Notes Note: Notes: No inpt beds available on [facility]. Pt provided with options for alternative admissions. Pt's 1st choice was [facility]. TLC made referral and pt was accepted at [facility]. Pt was read his rights and continues to express inability to keep himself safe if discharged home. Date Signed: 05/13/2018 05:28 PM Electronically Signed By:Sneha Giang
[2018-05-13 17:30] VITALS: BP 112/59
== END 2018-05-13 20:02 ==
DX: F31.2 Bipolar disorder, current episode manic severe with psychotic features (principal)
CPT/HCPCS: 80305; G0480